=== PATIENT | female | born 1980 | race Caucasian/White ===

== ENCOUNTER 2023-10-26 18:34 | Emergency (ER) | payer OTHER, SELFPAY ==
[2023-10-26 18:41] VITALS: BP 118/71
--- NOTE | 2023-10-26 20:32 | ED.GENMED ---
History of Present Illness
General
Chief Complaint: Skin Surface Trauma
Source: patient
Exam Limitations: none
Time Seen by Provider: 10/26/23 19:28
Nursing documentation reviewed up to this point in time: agreed with
Travel History
Have you had any contact with someone who has COVID-19?: No
Do you have any symptoms of coronavirus? Fever > 100 degrees, chills, cough, shortness of breath, sore throat, loss of taste or smell, muscle aches, or headache?: No
History of Present Illness
History of Present Illness:
43-year-old female presents to the ER for evaluation of left thumb laceration. She was using a serrated knife prior to arrival while cutting bread and accidentally cut her finger. She is right-hand dominant. She denies any pain. Denies any other
injuries. She is unsure of her last tetanus.
Review of Systems
Review of Systems
Allergies reviewed?: Yes
All Other Systems: ROS reviewed and negative except as documented in HPI and ROS
Constitutional: Reports no symptoms; Denies fever, fatigue or chills
Skin: Reports other (laceration to left thumb )
Neurological: Reports no symptoms
Psychiatric: Reports no symptoms
Phy Exam
General Physical Exam
General Presentation: no apparent distress
General age: appears stated age
General Skin: warm and dry
General Habitus: normal
General Mental: alert
General Hydration: appears well hydrated
Neurological Exam
Neurological Exam: alert and oriented x3
[place] Coma Scale
Eye Opening: Spontaneous
Verbal Response: Oriented
Motor Response: Obeys Commands
GCS Total Score: 15
Musculoskeletal Exam
Musculoskeletal Exam: other (lue with strong pulses 1/2 cm superficial flap laceration to distal aspect of left thumb no active bleeding no bony tenderness full flexion extension)
Skin Exam
Skin Exam: normal color and warm/dry
Psychiatric Exam
Psychiatric Exam: normal mood/affect
Course
Orders/Labs/Results
Orders:
Orders
10/26/23 20:31
Tetanus/Diphth/Acelpertussis [Adacel] 0.5 ml IM .ONCE ONE
Vital Signs
Initial and Last Documented VS:
Initial Vital Signs
Temp Pulse Resp BP Pulse Ox
98.1 F 78 18 118/71 98
10/26/23 18:41 10/26/23 18:41 10/26/23 18:41 10/26/23 18:41 10/26/23 18:41
Last Documented Vital Signs
Temp Pulse Resp BP Pulse Ox
98.1 F 78 18 118/71 98
10/26/23 18:41 10/26/23 18:41 10/26/23 18:41 10/26/23 18:41 10/26/23 18:41
Procedures
Laceration Closure
Left Distal Finger:
Status of Wound: clean
Size of Wound in cm: 0.5
Description of Wound Edges: flap-well vascularized
Preparation: cleaned with saline
Revision/Debridement: routine- no revision
Type of Closure: Dermabond-skin glue and other (steri strip )
MDM/Problems Addressed
Differential Diagnosis Includes:
not limited to laceration
MDM/Problems Addressed:
Simple flap laceration repaired with Steri-Strips and Dermabond tetanus updated. Wound care reviewed.
*Critical Care Note
Total Time (30-74mins, 75-104mins- exclusive of procedures): Not Applicable
ED Attending Note
-
Portions of this chart may have been created with voice recognition software.� Occasional wrong word or��sound alike� substitutions may have occurred due to the inherent limitations of voice recognition software.
Discharge Plan
Departure
Patient Disposition: Home (Routine Discharge)
Date of Disposition: 10/26/23
Time of Disposition: 20:39
Patient with high blood pressure during this ER visit?: No
Covid-19: Not Applicable
Discharge Problem:
Finger laceration
Instructions: Steri-Strips over Glued Wound
Referrals:
Luisana Murguia, DO [Family Provider] -
Activity Restrictions/Additional Instructions:
Keep wound clean and dry for 24 hours after 24 hours may lightly wet wound. Trim Steri-Strips as needed. Glue will flake off on its own. See family doctor in the next several days as needed. Return if any signs infection as discussed.
Interventions
Interventions:
*Risk Screen - Suicide Last Done: 10/26/23 18:41
*General Assessment Last Done: 10/26/23 18:41
*Neglect/Abuse Screening Last Done: 10/26/23 18:41
*ED COVID-19 Vaccine History Last Done: 10/26/23 18:41
ED-Skin Assessment Last Done: 10/26/23 19:01
Discharge Date and Time
Print Language: ROMANSH
[2023-10-26] MEDS: ADACEL 0.5 ML IM (21:18)
[2023-10-26 21:23] VITALS: BP 123/71
[2023-10-26 21:24] VITALS: BP 123/71
== END 2023-10-26 21:25 | disposition home or self-care (01) ==
LOC: EMR 18:34
PROVIDERS: EMERGENCY PHYSICIAN Emergency Medicine; FAMILY PHYSICIAN Internal Medicine
DX: S61.012A Laceration without foreign body of left thumb without damage to nail, initial encounter (principal); W26.0XXA Contact with knife, initial encounter; Y93.G1 Activity, food preparation and clean up; Z23 Encounter for immunization
CPT/HCPCS: 99282; 12001; 90471; 90715